=== PATIENT | female | born 1990 | race Caucasian/White ===

== ENCOUNTER 2017-03-15 00:17 | Emergency (ER) | payer OTHER ==
[~2017-03-15] VITALS: Ht 154.9 cm; Wt 46.4 kg
[~2017-03-15 00:17] MED LIST: ANUS2.5C2 TOP; DOCU10CA PO; MOTR200T44 PO; PERC5TAB12 PO
[2017-03-15] MEDS ORDERED: LEXA1TAB PO (00:33)
[2017-03-15 02:39] VITALS: BP 110/80
--- NOTE | 2017-03-15 02:40 | REPUSA ---
CLINICAL HISTORY: Suspected abdominal wall hernia. TECHNIQUE: Realtime sonographic images were obtained in multiple projections. COMMENTS: No umbilical hernia is noted. IMPRESSION: No hernia is noted. No anterior abdominal wall defect at the level of the umbilicus. Thank you for your kind referral of this patient.
[2017-03-15 02:47] LABS: CONTROL LINE UCG INT CTR LINE PRESENT
== END 2017-03-15 02:55 | disposition home or self-care (01) ==
LOC: M ED 00:17
DX: R10.33 Periumbilical pain (principal); Z79.899 Other long term (current) drug therapy